=== PATIENT | male | born 1945 | race Caucasian/White ===

== ENCOUNTER 2019-12-11 02:24 | Emergency (ER) | payer MEDICARE, OTHER ==
[2019-12-11 03:39] LABS: ABSOLUTE LYMPHOCYTES (AUTO) 0.7 10^3/uL (0.5-4.7); ABSOLUTE MONOCYTES (AUTO) 0.5 10^3/uL (0.1-1.4); ABSOLUTE NEUT (AUTO) 8.9 10^3/uL (1.7-8.2); BASOPHILS % (AUTO) 0.4 % (0-2); EOSINOPHILS % (AUTO) 0.4 % (0-6); HEMATOCRIT 44.7 % (37.9-51.0); HEMOGLOBIN 15.4 g/dL (13.5-17.0); LYMPHOCYTES % (AUTO) 7.3 % (13-45); MEAN CORPUSCULAR HEMOGLOBIN 32.9 pg (27.0-33.4); MEAN CORPUSCULAR HGB CONC 34.4 g/dL (32.0-36.0); MEAN CORPUSCULAR VOLUME 96 fl (80-97); MONOCYTES % (AUTO) 4.7 % (3-13); PLATELET COUNT 166 10^3/uL (150-450); RED BLOOD COUNT 4.67 10^6/uL (4.35-5.55); RED CELL DISTRIBUTION WIDTH 14.4 % (11.5-14.0); SEGMENTED NEUTROPHILS % (AUTO) 87.2 % (42-78); TOTAL CELLS COUNTED % (AUTO) 100 %; WHITE BLOOD COUNT 10.3 10^3/uL (4.0-10.5)
[2019-12-11 03:45] LABS: ALKALINE PHOSPHATASE 109 U/L (38-126); ANION GAP 7 (5-19); ASPARTATE AMINO TRANSFERASE 32 U/L (17-59); BILIRUBIN,DIRECT 0.3 mg/dL (0.0-0.4); BILIRUBIN,TOTAL 0.7 mg/dL (0.2-1.3); BLOOD UREA NITROGEN 19 mg/dL (7-20); CALCIUM 9.4 mg/dL (8.4-10.2); CARBON DIOXIDE 31 mmol/L (22-30); CHLORIDE 103 mmol/L (98-107); GLUCOSE 106 mg/dL (75-110); POTASSIUM 4.7 mmol/L (3.6-5.0); TOTAL PROTEIN 6.6 g/dL (6.3-8.2)
[2019-12-11 03:45] LABS: APPEARANCE,URINE CLEAR; BILIRUBIN,URINE NEGATIVE (NEGATIVE); COLOR,URINE YELLOW; GLUCOSE, URINE NEGATIVE (NEGATIVE); KETONES,URINE TRACE mg/dL (NEGATIVE); LEUKOCYTE ESTERASE,URINE NEGATIVE (NEGATIVE); NITRITE,URINE NEGATIVE (NEGATIVE); PROTEIN,URINE 30 mg/dL (NEGATIVE); URINE SPECIFIC GRAVITY 1.021; UROBILINOGEN,URINE NEGATIVE mg/dL (<2.0)
[2019-12-11] MEDS ORDERED: NORMAL SALINE 1000 ML 1,000 ML IV ONE (04:44)
[2019-12-11] MEDS ORDERED: METOCLOPRAMIDE HCL INJ/PF 10 MG/2 ML SDV IV ONE (04:44)
--- NOTE | 2019-12-11 05:01 | ER Document Report ---
ED Syncope and Near Syncope - General Chief Complaint: Syncope Stated Complaint: ABDOMINAL PAIN,DIARRHEA,SYNCOPE Time Seen by Provider: 12/11/19 04:25 Primary Care Provider: RIVAS IRIZARRY MD [Primary Care Provider] - Follow up tomorrow Notes: Patient is a 74-year-old male who presents to the emergency department with a chief complaint of a syncopal episode x2 and abdominal pain. Patient's is at bedside and states that the patient needed to use the restroom in the middle of the night got up and when he went to go get he ended up falling flat on his back. After that he ended up mumbling and was not speaking any words. He also ended up having diarrhea at that time. She was then able to get him to arouse and get him to go to bed and then when he went to bed he ended up "passing out" again. Patient has a history of vertigo, prostatitis, hypertension. TRAVEL OUTSIDE OF THE [place] IN LAST 30 DAYS: Yes - Related Data Allergies/Adverse Reactions: No Known Allergies Allergy (Unverified 07/22/14 04:28) Past Medical History - Social History Smoking Status: Never Smoker Chew tobacco use (# tins/day): No Frequency of alcohol use: None Drug Abuse: None Family History: CAD, CVA, DM, Hyperlipidemia, Hypertension, Malignancy Patient has suicidal ideation: No Patient has homicidal ideation: No - Past Medical History Cardiac Medical History: Reports: Hx Hypertension Renal/ Medical History: Reports: Hx Kidney Stones GI Medical History: Reports: Hx Gastroesophageal Reflux Disease, Hx Hiatal Hernia Musculoskeletal Medical History: Reports Hx Gout, Reports Hx Musculoskeletal Deformity, Reports Hx Musculoskeletal Trauma Past Surgical History: Reports: Hx Inguinal Hernia, Hx Kidney (Renal Surgery) - Immunizations Immunizations up to date: Yes Hx Diphtheria, Pertussis, Tetanus Vaccination: Yes Review of Systems - Review of Systems Notes: REVIEW OF SYSTEMS: CONSTITUTIONAL : Denies recent illness. Denies recent unintentional weight loss. Denies fever, chills, or sweats. EENT: Denies eye, ear, throat, or mouth pain, discharge, or symptoms. Denies nasal or sinus congestion. CARDIOVASCULAR: Denies chest pain. RESPIRATORY: Denies shortness of breath, cough, congestion, difficulty breathing, or wheezing. GASTROINTESTINAL: See HPI. GENITOURINARY: Denies difficulty urinating, burning, blood in urine, urgency or frequency. MUSCULOSKELETAL: Denies neck and back pain. Denies joint pain or swelling. SKIN: Denies rash, itchiness, or lesions HEMATOLOGIC : Denies easy bruising or bleeding. LYMPHATIC: Denies swollen, painful, enlarged glands. NEUROLOGICAL: Denies no numbness or tingling denies weakness. Denies headache. See HPI. PSYCHIATRIC: Denies stress, anxiety, alteration in sleep patterns, or depression. All other systems reviewed and negative. Physical Exam - Vital signs Vitals: Temp Resp Pulse Ox 97.9 F 10 L 95 12/11/19 02:34 12/11/19 02:34 12/11/19 02:34 - Notes Notes: PHYSICAL EXAMINATION: GENERAL: Appears well, healthy, well-nourished, no acute distress. HEAD: Normocephalic, atraumatic. EYES: PERRL, conjunctiva normal, all extraocular movements intact, sclera nonic teric ENT: Moist mucous membranes. NECK: Supple, no noticeable swelling, redness, rash. Normal range of motion. LUNGS: Equal breath sounds bilaterally and clear to auscultation. No wheezes rales or rhonchi. CARDIOVASCULAR: S1-S2, regular rate, regular rhythm. Radial pulses 2+, normal. ABDOMEN: Normoactive bowel sounds. Soft, nontender, no guarding, no rebound tenderness, and no masses palpated. EXTREMITIES: Normal strength and range of motion, no pitting or edema. No cyanosis. NEUROLOGICAL: Moves all extremities upon command. Strength 5/5 in all extremities. PSYCH: Normal mood, normal affect. SKIN: Warm, dry. No rash, lesions, ulcerations noted. Normal skin turgor. Course - Re-evaluation Re-evalutation: 12/11/19 07:[address] of the abdomen pelvis are negative for any acute findings. The nephrolithiasis noted on his CT scan are chronic and the patient knows about this. There are chronic changes noted on the patient's CT of the head. I discussed these findings with the patient. He also has degenerative changes in his neck, which are normal. I discussed this case with Dr. Brown, my atte lino. He agrees that the patient is okay to go home and have follow-up with his primary care provider. Dr. Brown also evaluated the patient. The patient is very reliable and states that he will follow-up with his PCM. Follow-up precautions were given. Verbal discharge instructions were given to the patient. They verbalized understanding. They are stable for discharge. - Vital Signs Vital signs: Temp Pulse Resp BP Pulse Ox 98.0 F 66 15 112/64 95 12/11/19 08:29 12/11/19 08:29 12/11/19 08:29 12/11/19 08:29 12/11/19 08:29 - Laboratory Result Diagrams: 12/11/19 03:13 12/11/19 03:13 Laboratory results interpreted by me: 12/11/19 12/11/19 12/11/19 03:13 03:13 03:19 RDW 14.4 H Lymph % (Auto) 7.3 L Absolute Neuts (auto) 8.9 H Seg Neutrophils % 87.2 H Carbon Dioxide 31 H Urine Protein 30 H Urine Ketones TRACE H - EKG Interpretation by Me Additional EKG results interpreted by me: 12/11/19 07:43 Sinus rhythm. Rate 61. [place] 188; QRS 102; QT 404; QTc 407. No ST elevations or depressions noted. Discharge - Discharge Clinical Impression: Diarrhea Qualifiers: Diarrhea type: unspecified type Qualified Code(s): R19.7 - Diarrhea, unspecified Syncope Qualifiers: Syncope type: unspecified Qualified Code(s): R55 - Syncope and collapse Abdominal pain Qualifiers: Abdominal location: generalized Qualified Code(s): R10.84 - Generalized abdominal pain Condition: Stable Disposition: HOME, SELF-CARE Additional Instructions: You were seen today in the emergency department after a syncopal episode, also known as "passing out." You most likely had this from your abdominal pain and being dehydrated. Your CT scans did not show anything acute that needs hospitalization at this time. You are also dehydrated and we gave you IV fluids here in the emergency department. If you develop one-sided weakness, slurred speech, facial droop, or any other symptoms that are worrisome to you, please return to the emergency department. You are being sent home with Reglan, nausea medication. Take as needed. Please have your primary care provider order carotid Doppler studies. Prescriptions: Metoclopramide HCl [Reglan 10 mg Tablet] 1 - 2 tab PO ASDIR PRN #25 tablet PRN Reason: Referrals: RIVAS IRIZARRY MD [Primary Care Provider] - Follow up tomorrow
--- NOTE | 2019-12-11 06:33 | EKG REPORT ---
SEVERITY:- BORDERLINE ECG - SINUS RHYTHM BORDERLINE RIGHT AXIS DEVIATION BORDERLINE INFERIOR Q WAVES : Confirmed by: Huy Steele MD 11-Dec-2019 06:32:51
--- NOTE | 2019-12-11 06:41 | RADIOLOGY REPORT (SQ) ---
CLINICAL HISTORY: fall COMPARISON: None. TECHNIQUE: CT CERVICAL SPINE WITHOUT IV CONTRAST on 12/11/2019 4:46 AM INSPECTOR OF WEIGHTS AND MEASURES This exam was performed according to our departmental dose-optimization program, which includes automated exposure control, adjustment of the mA and/or kV according to patient size and/or use of iterative reconstruction technique. FINDINGS: There is no acute fracture. Alignment is anatomic. There is moderate left and mild right-sided facet arthritis. There is mild narrowing of the C5-6 and C6-7 discs. Vertebral body heights are preserved. Soft tissues are unremarkable. IMPRESSION: No acute fracture or subluxation.
--- NOTE | 2019-12-11 06:41 | RADIOLOGY REPORT (SQ) ---
CLINICAL HISTORY: syncope; fall COMPARISON: None. TECHNIQUE: CT HEAD WITHOUT IV CONTRAST on 12/11/2019 4:45 AM POULTRY HUSBANDRY WORKER This exam was performed according to our departmental dose-optimization program, which includes automated exposure control, adjustment of the mA and/or kV according to patient size and/or use of iterative reconstruction technique. FINDINGS: There is no acute hemorrhage, mass effect or midline shift. Palacios-white differentiation is preserved. There is no hydrocephalus. There is no significant volume loss for age. There are mild patchy hypodensities within the periventricular and subcortical white matter, consistent with microangiopathic ischemic changes. The calvarium is intact. Orbits and globes are unremarkable. The paranasal sinuses are clear. Mastoid air cells are clear. IMPRESSION: No acute intracranial findings.
--- NOTE | 2019-12-11 06:45 | RADIOLOGY REPORT (SQ) ---
CLINICAL HISTORY: abdominal pain COMPARISON: None. TECHNIQUE: CT ABDOMEN PELVIS WITH IV CONTRAST on 12/11/2019 4:48 AM WINE CONSULTANT This exam was performed according to our departmental dose-optimization program, which includes automated exposure control, adjustment of the mA and/or kV according to patient size and/or use of iterative reconstruction technique. FINDINGS: Lower lungs are clear. Abdomen: The liver is normal in appearance. There is no biliary dilatation. Gallbladder is normal in appearance. The pancreas and spleen are normal in appearance. Adrenal glands are normal. There are multiple scattered 2 to 3 mm bilateral renal calculi. There is no hydronephrosis. Abdominal aorta is normal in course and caliber without aneurysm. There is no free air. There is no retroperitoneal adenopathy. Pelvis: There is no bowel obstruction. Urinary bladder is unremarkable. There is no free fluid. Appendix is normal. Skeleton: There are no acute osseous findings. No suspicious bony lesions. IMPRESSION: Bilateral nephrolithiasis without hydronephrosis. No definite acute process.
[2019-12-11 08:30] VITALS: BP 112/64
== END 2019-12-11 08:28 | disposition home or self-care (01) ==
LOC: ER 02:24
DX: R55 Syncope and collapse (principal); R19.7 Diarrhea, unspecified; R10.84 Generalized abdominal pain; W18.39XA Other fall on same level, initial encounter; I10 Essential (primary) hypertension; Z87.442 Personal history of urinary calculi
CPT/HCPCS: 99284; 96361; 96374; 36415; 85025; 80053; 81001; 70450; 72125; 74177; 93005; 93010; J2765; J7030